=== PATIENT | male | born 1990 | race Caucasian/White ===

== ENCOUNTER 2020-06-27 15:51 | Emergency (ER) | payer MEDICAID, OTHER ==
[~2020-06-27] VITALS: Ht 190.5 cm; Wt 83.0 kg
[~2020-06-27 15:51] MED LIST: GABAPENTIN800 MG ORAL; KEFLEX500 MG ORAL; PHENAZOPYRIDIN200 MG ORAL; ZOFRAN ODT4 MG ORAL
[2020-06-27 16:00] VITALS: BP 125/72
--- NOTE | 2020-06-27 16:29 | Emergency Room Report ---
History of Present Illness General Chief Complaint: Upper Extremity Injury Source: Patient Present Illness HPI 29-year-old male with no significant past medical history other fracture of left forearm x1 year and pin placement with orthopedic surgeon here complaining of a crushing injury to left hand that happened 2 days ago. Patient reports that he was moving his couch and his hand was crushed between the wall and the couch. Swelling is noted on the thenar and hyperthenar area. Patient has range of motion of the area however reports pain with range of motion. Denies any tingling or numbness. Has taken Advil with relief. Has a pending appointment with seo marketing specialist. Denies any other injuries. Patient is neurovascularly intact. Has full strength of the left hand and wrist. 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 Patient History Past Medical History: see triage record Past Surgical History: none Pertinent Family History: none Immunizations: UTD Reviewed Nursing Documentation: PMH: Agreed; PSxH: Agreed Nursing Documentation-PMH Past Medical History: No History, Except For Review of Systems All Other Systems: negative except mentioned in HPI Physical Exam Vital Signs Date Time Temp Pulse Resp B/P (MAP) Pulse Ox O2 Delivery O2 Flow Rate FiO2 06/27/20 16:01 98.8 93 16 115/80 (92) 96 Room Air Sp02 EP Interpretation: reviewed, normal General Appearance: no apparent distress, alert, GCS 15, non-toxic Head: normocephalic, atraumatic Eyes: bilateral eye normal inspection, bilateral eye PERRL ENT: hearing grossly normal, normal pharynx, no angioedema, normal voice Neck: full range of motion, supple/symm/no masses Respiratory: chest non-tender, lungs clear, normal breath sounds, speaking full sentences Cardiovascular #1: regular rate, rhythm, no edema Cardiovascular #2: 2+ radial (R), 2+ radial (L) Gastrointestinal: normal bowel sounds, non tender, soft, non-distended, no guarding, no rebound Rectal: deferred Musculoskeletal: back normal, non-tender, swelling - Left thenar , other - Snuffbox nontender to palpation, neurovascularly intact Neurologic: alert, motor strength/tone normal, oriented x3, sensory intact, responsive, speech normal Psychiatric: judgement/insight normal, memory normal, mood/affect normal, no suicidal/homicidal ideation Skin: no rash Lymphatic: no adenopathy Procedures Splinting Splinting : Consent: Verbal Location: Left hand Hand-Made Type: plaster Splint: thumb spica Pre-Proc Neuro Vasc Exam: normal Post-Proc Neuro Vasc Exam: normal Patient Tolerated: Well Complications: None Progress Sling was provided Medical Decision Making PA Attestation All diagnoses and treatment plans were reviewed and discussed with my supervising physician Dr. Callahan Diagnostic Impression: Primary Impression: Crushing injury of hand ER Course 29-year-old male with no significant past medical history other fracture of left forearm x1 year and pin placement with orthopedic surgeon here complaining of a crushing injury to left hand that happened 2 days ago. Patient reports that he was moving his couch and his hand was crushed between the wall and the couch. Swelling is noted on the thenar and hyperthenar area. Patient has range of motion of the area however reports pain with range of motion. Denies any tingling or numbness. Has taken Advil with relief. Has a pending appointment with seo marketing specialist. Denies any other injuries. Patient is neurovascularly intact. Has full strength of the left hand and wrist. Ddx considered but are not limited to: Hand sprain, hand sprain, hand fracture Vital signs: are WNL, pt. is afebrile H&PE are most consistent with : Crushing injury of left hand ORDERS: Hand x-ray, Tylenol 3, Motrin ED INTERVENTIONS: Splint was applied, sling was given DISCHARGE: At this time pt. is stable for d/c to home. Will provide printed patient care instructions, and any necessary prescriptions. Care plan and follow up instructions have been discussed with the patient prior to discharge. Patient take medication as directed, follow-up with seo marketing specialist, if worsening symptoms return to the emergency room Other X-Ray Diagnostic Results Other X-Ray Diagnostic Results : X-Ray ordered: Left hand # of Views/Limited Vs Complete: 3 View Indication: Pain EP Interpretation: Yes PA Xray: Interpretation reviewed, by supervising MD, and agrees with findings. Interpretation: no dislocation, no soft tissue swelling, no fractures Impression: No acute disease Electronically Signed by: Therese Romero PA-C Last Vital Signs Date Time Temp Pulse Resp B/P (MAP) Pulse Ox O2 Delivery O2 Flow Rate FiO2 06/27/20 16:01 98.8 93 16 115/80 (92) 96 Room Air Disposition: HOME, SELF-CARE Condition: Stable Scripts Acetaminophen With Codeine (T#3) (TYLENOL #3 TAB*) Y Tab 1 TAB ORAL BID PRN for For Pain for 3 Days, #6 TAB Prov: Therese Contreras 06/27/20 Ibuprofen* (MOTRIN*) 600 Mg Tablet 600 MG ORAL Q8H PRN for FOR PAIN, #30 TAB 0 Refills Prov: Therese Contreras 06/27/20 Patient Instructions: Crush Injury, Fingers or Toes Additional Instructions: Take medication as directed, follow-up with seo marketing specialist, keep splint on, if worsening symptoms return to the emergency room Therese Contreras Jun 27, 2020 16:29
[2020-06-27] MEDS ORDERED: IBUPROFEN600 M1 ORAL (16:31)
[2020-06-27] MEDS ORDERED: ACETAMINOPHEN-1 EAC1 ORAL (16:31)
[2020-06-27 16:46] VITALS: BP 115/80
--- NOTE | 2020-06-27 19:10 | Diagnostic Imaging Report ---
Clinical Indication:Pain, trauma Technique: 3 views of the left wrist Comparison: None Findings: Surgical hardware is seen reducing old healed midshaft ulnar fracture. Hardware appears intact except for orphaned screw tip within colon on the medulla medial ulnar cortex.. No acute fractures. No dislocations. Joint spaces are preserved. Impression: No acute bony trauma
== END 2020-06-27 16:46 | disposition home or self-care (01) ==
LOC: EMR 16:28
DX: S67.22XA Crushing injury of left hand, initial encounter (principal); W23.0XXA Caught, crushed, jammed, or pinched between moving objects, initial encounter; Y92.9 Unspecified place or not applicable
CPT/HCPCS: 29125; 73110; Z7502; 99283